=== PATIENT | female | born 1980 | race Caucasian/White ===

== ENCOUNTER 2023-01-03 15:15 | Outpatient (RCR) | payer OTHER, SELFPAY | END 2023-03-21 13:45 | disposition home or self-care (01) | PROVIDERS: Visit Provider Specialist/Technologist Athletic Trainer | DX: M75.41 Impingement syndrome of right shoulder (principal); M25.511 Pain in right shoulder; R53.1 Weakness; Z74.09 Other reduced mobility; M89.8X1 Other specified disorders of bone, shoulder; Z51.89 Encounter for other specified aftercare | CPT/HCPCS: 97110; 97161 ==